=== PATIENT | female | born 1990 | race Caucasian/White ===

== ENCOUNTER 2017-05-06 07:27 | Emergency (ER) | payer OTHER, MEDICAID ==
[~2017-05-06] VITALS: Ht 170.2 cm; Wt 123.8 kg
[~2017-05-06 07:27] MED LIST: ACETAMINOPHEN-1 EAC1 PO; ATIVAN1 MG PO; AZITHROMYCIN PO; CLEOCIN HCL150 MG PO; CLEOCIN HCL300 MG PO; DEPO-PROVER150 MG/M1; ERYTHROMYCIN250 MG PO; FLAGYL500 MG; FLEXERIL PO; HYDROCODON-ACE1 EAC7 PO; IBUPROFEN 800800 MG PO; KEFLEX500 MG PO; MEDROLDOSEPACK PO; MIRENA; MULTIVITAMINS; NOHOMEMEDICATIONS; NORCO 5-325 TA1 EACH PO; SPRINTEC1 EACH PO; TRAMADOL 50 MG50 MG PO; VICODIN 5-5001 EACH PO; XANAX 0.25 MG0.25 MG PO; ZPAK PO; [UNRECOGNIZED DRUG - REMARK]
[2017-05-06 07:31] VITALS: BP 124/73
[2017-05-06] MEDS ORDERED: ZANTAC 150MG T150 MG PO (07:34)
[2017-05-06] MEDS ORDERED: TESSALON PERLE100 MG PO (07:34)
[2017-05-06] MEDS ORDERED: ZPAK PO (07:42)
== END 2017-05-06 07:47 | disposition home or self-care (01) ==
LOC: M.ERS 07:27
DX: J06.9 Acute upper respiratory infection, unspecified (principal); H92.03 Otalgia, bilateral; F17.210 Nicotine dependence, cigarettes, uncomplicated; Z88.0 Allergy status to penicillin